=== PATIENT | male | born 1980 | race African-American/Black ===

== ENCOUNTER 2024-03-13 15:50 | Emergency (ER) | payer BC, MEDICAID ==
[~2024-03-13] VITALS: Ht 182.9 cm; Wt 110.0 kg
[2024-03-13 15:52] VITALS: O2SAT 98
[2024-03-13 16:47] LABS: BASOPHILS % 0.9 % (0.0-2.0); CHLORIDE 104 mEq/L (98-107); DIFFERENTIAL COMMENT 0; EOSINOPHILS % 2.6 % (0.0-5.0); HEMOGLOBIN. 12.4 g/dL (14.0-18.0); LYMPHOCYTES % 19.9 % (20.0-50.0); MEAN CORPUSCULAR HEMOGLOBIN 25.1 pg (28.0-32.0); MEAN CORPUSCULAR HGB CONC 31.9 g/dL (31.0-37.0); MEAN CORPUSCULAR VOLUME 78.7 fL (80.0-94.0); MEAN PLATELET VOLUME 9.6 fl (7.4-10.4); MONOCYTES % 6.7 % (2.0-8.0); NEUTROPHILS % 69.9 % (40.0-76.0); PLATELET 308 x1000/uL (130-400); POTASSIUM 3.7 mEq/L (3.5-5.1); RED BLOOD CELL COUNT 4.95 mill/uL (4.7-6.1); RED CELL DISTRIBUTION WIDTH 14.4 % (11.6-14.6); SODIUM 135 mEq/L (136-145); WHITE BLOOD COUNT 8.8 x1000/uL (4.5-11.0)
[2024-03-13 16:48] LABS: CARBON DIOXIDE 21 mEq/L (21-32)
[2024-03-13] MEDS: SODIUM CHLORIDE 0.9% 1000ML BAG (SEPSIS BOLUS) IV ONE (16:49)
[2024-03-13 16:53] LABS: CREATININE 4.2 mg/dL (0.6-1.3); GLUCOSE 297 mg/dL (70-105); UREA NITROGEN BLOOD 34 mg/dL (9-23)
[2024-03-13 16:55] LABS: TROPONIN I HIGH SENSITIVITY 37 ng/L (3.0-53)
[2024-03-13 20:07] VITALS: BP 188/110; PULSE 120; RESP 12; TEMP 98.4
[2024-03-13 20:52] LABS: TROPONIN I HIGH SENSITIVITY 39 ng/L (3.0-53)
== END 2024-03-13 21:45 | disposition left against medical advice (07) ==
LOC: ER 15:50
DX: R41.82 Altered mental status, unspecified (principal); E11.9 Type 2 diabetes mellitus without complications; Z86.73 Personal history of transient ischemic attack (TIA), and cerebral infarction without residual deficits
CPT/HCPCS: 99285; 71045; 80048; 83880; 83605; 85025; 84484; 36415; 93005; J7030

== ENCOUNTER 2024-12-02 12:33 | Emergency (ER) | payer BC, MEDICAID ==
[~2024-12-02] VITALS: Ht 170.2 cm; Wt 110.0 kg
[~2024-12-02 12:33] MED LIST: AMLO5TAB88 PO; ASPI-1497 PO; ATOR-2 PO; EMPA25TA PO; HYDR25TA78 PO; IBUP-2028 MT; LISI20TA31 PO; PIOG45TA64 PO
[2024-12-02 12:38] VITALS: TEMP 37.2; O2SAT 100
[2024-12-02 14:05] LABS: CLARITY URINE CLEAR (CLEAR); COLOR URINE YELLOW (YELLOW); GLUCOSE URINE 2+ (NEGATIVE); KETONES URINE NEGATIVE (NEGATIVE); LEUKOCYTE ESTERASE URINE NEGATIVE (NEGATIVE); NITRITE URINE NEGATIVE (NEGATIVE); OCCULT BLOOD URINE NEGATIVE (NEGATIVE); PROTEIN URINE 3+ (NEGATIVE); SPECIFIC GRAVITY URINE 1.011 (1.005-1.030); UROBILINOGEN URINE 0.2 E.U./dL (0.2-1.0)
[2024-12-02 14:25] LABS: BACTERIA URINE NONE SEEN; RBC URINE 0-2 /hpf (0-2); SQUAMOUS EPITHELIAL CELL URINE RARE /lpf (RARE/1+); WBC URINE 0-2 /hpf (0-2); YEAST URINE NONE SEEN
[2024-12-02 14:32] LABS: *AMPHETAMINES SCREEN URINE NEGATIVE (NEGATIVE); *BENZODIAZEPINES SCREEN URINE NEGATIVE (NEGATIVE)
[2024-12-02 14:33] LABS: *BARBITURATES SCREEN URINE NEGATIVE (NEGATIVE); *COCAINE SCREEN URINE NEGATIVE (NEGATIVE); CANNABINOID URINE SCREEN NEGATIVE (NEGATIVE); ECSTASY MDMA SCREEN URINE NEGATIVE (NEGATIVE); METHADONE URINE SCREEN NEGATIVE (NEGATIVE); OPIATES URINE SCREEN NEGATIVE (NEGATIVE); PHENCYCLIDINE URINE SCREEN NEGATIVE (NEGATIVE)
[2024-12-02 15:18] LABS: BASOPHILS % 0.8 % (0.0-2.0); DIFFERENTIAL COMMENT 0; EOSINOPHILS % 1.8 % (0.0-5.0); HEMATOCRIT. 35.4 % (42.0-52.0); HEMOGLOBIN. 11.2 g/dL (14.0-18.0); LYMPHOCYTES % 20.6 % (20.0-50.0); MEAN CORPUSCULAR HEMOGLOBIN 24.7 pg (28.0-32.0); MEAN CORPUSCULAR HGB CONC 31.7 g/dL (31.0-37.0); MEAN PLATELET VOLUME 8.8 fl (7.4-10.4); NEUTROPHILS % 70.8 % (40.0-76.0); PLATELET 288 x1000/uL (130-400); RED BLOOD CELL COUNT 4.54 mill/uL (4.7-6.1); RED CELL DISTRIBUTION WIDTH 14.4 % (11.6-14.6); WHITE BLOOD COUNT 8.1 x1000/uL (4.5-11.0)
[2024-12-02 15:24] LABS: D-DIMER 0.56 mg/L FEU (<0.50); PROTHROMBIN TIME 10.4 sec (9.6-11.0)
[2024-12-02 15:38] LABS: AMMONIA < 17 uMol/L (<32)
[2024-12-02 15:41] LABS: CALCIUM 9.2 mg/dL (8.7-10.4); CARBON DIOXIDE 20 mEq/L (21-32); CHLORIDE 107 mEq/L (98-107); SODIUM 134 mEq/L (136-145)
[2024-12-02 15:45] VITALS: BP 173/82; PULSE 98; RESP 19; O2SAT 96
[2024-12-02 15:46] LABS: GLUCOSE 94 mg/dL (70-105); UREA NITROGEN BLOOD 58 mg/dL (9-23)
[2024-12-02 15:47] LABS: ETHANOL BLOOD < 10 mg/dL (<10); TROPONIN I HIGH SENSITIVITY 34 ng/L (3.0-53)
[2024-12-02 15:48] LABS: ACETAMINOPHEN < 2 ug/mL (10-30); ALANINE AMINOTRANSFERASE 12 IU/L (10-49); ALBUMIN 4.3 g/dL (3.2-4.8); ASPARTATE AMINOTRANSFERASE 13 IU/L (<34)
[2024-12-02 15:49] LABS: BILIRUBIN DIRECT < 0.1 mg/dL (<=3.0); BILIRUBIN TOTAL 0.3 mg/dL (0.1-1.0); PROTEIN TOTAL 8.7 g/dL (6.0-8.3)
[2024-12-02 15:50] LABS: THYROID STIMULATING HORMONE 0.72 uIU/mL (0.55-4.78)
[2024-12-02 16:06] LABS: CREATININE 5.4 mg/dL (0.6-1.3)
[2024-12-02] MEDS ORDERED: FUROSEMIDE 100MG/10ML VIAL IV STA (16:08)
[2024-12-02] MEDS ORDERED: SODIUM BICARBONATE 8.4% 50MEQ/50ML SYR IV ONE (16:15)
[2024-12-02] MEDS ORDERED: CALCIUM CHLORIDE 1GM/10ML SYR IV ONE (16:15)
[2024-12-02] MEDS ORDERED: ALBUTEROL (0.083%) 2.5MG/3ML NEB HHN ONE (16:15)
[2024-12-02] MEDS ORDERED: INSULIN REGULAR (HUMULIN R) 1000UNITS/10ML VIAL IV ONE (16:15)
[2024-12-02] MEDS ORDERED: SODIUM POLYSTYRENE SULFONATE 15 G/60 ML BOT PO ONE (16:15)
[2024-12-02] MEDS ORDERED: SODIUM CHLORIDE 0.9% 1,000 ML IV ONE (16:15)
[2024-12-02] MEDS ORDERED: DEXTROSE 50% WATER 50ML SYRINGE IV ONE (16:15)
[2024-12-02] MEDS ORDERED: DIPHENHYDRAMINE 50MG/ML VIAL IV NR (19:00)
[2024-12-02] MEDS ORDERED: LORAZEPAM 2MG/ML UD SYRINGE IV NR (19:00)
[2024-12-03] MEDS ORDERED: HYDR100T11 MT (14:25)
== END 2024-12-02 21:07 | disposition left against medical advice (07) ==
LOC: ER 12:43 → EDBEDREQTM 18:35 → EDBEDREQ 18:35 → ER 21:07 → CANBEDREQ 22:06
DX: R55 Syncope and collapse (principal); E11.9 Type 2 diabetes mellitus without complications; E78.00 Pure hypercholesterolemia, unspecified; I10 Essential (primary) hypertension; Z79.84 Long term (current) use of oral hypoglycemic drugs; Z79.82 Long term (current) use of aspirin; Z79.899 Other long term (current) drug therapy; Z86.73 Personal history of transient ischemic attack (TIA), and cerebral infarction without residual deficits; Z85.46 Personal history of malignant neoplasm of prostate
CPT/HCPCS: 80076; 80305; 80048; 81003; 80307; 80329; 80320; 82140; 83880; 83690; 84443; 85025; 85379; 85610; 84484; 36415; 71045; 70450; 93005; 99291; J7030; A4606; G0480

== ENCOUNTER 2025-01-23 14:26 | Emergency (ER) | payer BC, MEDICAID ==
[~2025-01-23] VITALS: Ht 175.3 cm; Wt 113.0 kg
[~2025-01-23 14:26] MED LIST changes: +HYDR100T11 MT
[2025-01-23 14:29] VITALS: O2SAT 100
[2025-01-23] MEDS ORDERED: SODIUM CHLORIDE 0.9% 1,000 ML IV ONE (14:45)
[2025-01-23 15:48] VITALS: BP 129/61; O2SAT 100
[2025-01-23 17:29] LABS: BASOPHILS % 1.1 % (0.0-2.0); DIFFERENTIAL COMMENT 0; HEMATOCRIT. 28.7 % (42.0-52.0); HEMOGLOBIN. 9.3 g/dL (14.0-18.0); LYMPHOCYTES % 19.8 % (20.0-50.0); MEAN CORPUSCULAR HEMOGLOBIN 25.5 pg (28.0-32.0); MEAN CORPUSCULAR HGB CONC 32.5 g/dL (31.0-37.0); MEAN CORPUSCULAR VOLUME 78.4 fL (80.0-94.0); MEAN PLATELET VOLUME 8.7 fl (7.4-10.4); MONOCYTES % 7.9 % (2.0-8.0); NEUTROPHILS % 69.2 % (40.0-76.0); PLATELET 218 x1000/uL (130-400); RED BLOOD CELL COUNT 3.66 mill/uL (4.7-6.1); RED CELL DISTRIBUTION WIDTH 15.5 % (11.6-14.6); WHITE BLOOD COUNT 7.1 x1000/uL (4.5-11.0)
[2025-01-23 17:35] LABS: CHLORIDE 106 mEq/L (98-107); POTASSIUM 5.2 mEq/L (3.5-5.1); SODIUM 134 mEq/L (136-145)
[2025-01-23 17:36] LABS: CARBON DIOXIDE 18 mEq/L (21-32)
[2025-01-23 17:37] LABS: CALCIUM 8.5 mg/dL (8.7-10.4)
[2025-01-23 17:42] LABS: ETHANOL BLOOD < 10 mg/dL (<10); GLUCOSE 145 mg/dL (70-105); UREA NITROGEN BLOOD 51 mg/dL (9-23)
[2025-01-23 17:43] LABS: TROPONIN I HIGH SENSITIVITY 19 ng/L (3.0-53)
[2025-01-23 17:44] LABS: CREATINE KINASE 151 IU/L (46-171)
[2025-01-23 17:51] LABS: CREATININE 5.3 mg/dL (0.6-1.3)
[2025-01-23] MEDS ORDERED: CALCIUM GLUCONATE 1,000 MG in DEXT 5% WATER 100 ML IV ONE (18:00)
[2025-01-23] MEDS ORDERED: DEXTROSE 50% WATER 50ML SYRINGE IV ONE (18:00)
[2025-01-23] MEDS ORDERED: INSULIN REGULAR (HUMULIN R) 1000UNITS/10ML VIAL IV ONE (18:00)
[2025-01-23] MEDS ORDERED: CALCIUM GLUCONATE 1GM PREMIX 100 ML IV SCH (18:15)
[2025-01-23] MEDS: ALBUTEROL (0.083%) 2.5MG/3ML NEB HHN SCH (18:24)
[2025-01-23 18:25] VITALS: PULSE 93; RESP 18
[2025-01-23 19:45] VITALS: PULSE 106; RESP 16; TEMP 36.9
[2025-03-17] MEDS ORDERED: LIDO-53 TP (23:41)
[2025-03-17] MEDS ORDERED: NAPR-1176 MT (23:41)
== END 2025-01-23 20:25 | disposition left against medical advice (07) ==
LOC: ER 14:26 → EDBEDREQ 18:18 → CANBEDREQ 20:20 → ER 20:25
DX: I12.9 Hypertensive chronic kidney disease with stage 1 through stage 4 chronic kidney disease, or unspecified chronic kidney disease (principal); N18.9 Chronic kidney disease, unspecified; E87.5 Hyperkalemia; R55 Syncope and collapse; D64.9 Anemia, unspecified; E11.22 Type 2 diabetes mellitus with diabetic chronic kidney disease; E78.00 Pure hypercholesterolemia, unspecified; Z79.899 Other long term (current) drug therapy; Z98.890 Other specified postprocedural states
CPT/HCPCS: 80048; 80320; 82550; 83880; 85025; 84484; 36415; 71045; 70450; 94640; 93005; 99291; J0612; J7060; J7030; A4606; G0480

== ENCOUNTER 2025-04-11 11:28 | Emergency (ER) | payer BC, MEDICAID ==
[~2025-04-11] VITALS: Ht 182.9 cm; Wt 127.0 kg
[~2025-04-11 11:28] MED LIST changes: +LIDO-53 TP; +NAPR-1176 MT
[2025-04-11 11:33] VITALS: O2SAT 97
[2025-04-11 12:38] LABS: BASOPHILS % 0.5 % (0.0-2.0); EOSINOPHILS % 3.5 % (0.0-5.0); HEMATOCRIT. 32.5 % (42.0-52.0); HEMOGLOBIN. 10.1 g/dL (14.0-18.0); LYMPHOCYTES % 20.3 % (20.0-50.0); MEAN PLATELET VOLUME 8.7 fl (7.4-10.4); MONOCYTES % 5.1 % (2.0-8.0); NEUTROPHILS % 70.6 % (40.0-76.0); PLATELET 287 x1000/uL (130-400); RED BLOOD CELL COUNT 4.13 mill/uL (4.7-6.1); RED CELL DISTRIBUTION WIDTH 14.7 % (11.6-14.6)
[2025-04-11 12:56] LABS: UREA NITROGEN BLOOD 56 mg/dL (9-23)
[2025-04-11 12:58] LABS: BILIRUBIN DIRECT < 0.1 mg/dL (<=3.0); BILIRUBIN TOTAL 0.2 mg/dL (0.1-1.0); PROTEIN TOTAL 8.0 g/dL (6.0-8.3); TROPONIN I HIGH SENSITIVITY 24 ng/L (3.0-53)
[2025-04-11 13:08] LABS: ASPARTATE AMINOTRANSFERASE < 8 IU/L (<34); CREATININE 7.6 mg/dL (0.6-1.3)
[2025-04-11 13:35] VITALS: BP 135/65; PULSE 72; RESP 18; TEMP 37; O2SAT 99
[2025-04-11] MEDS ORDERED: ASPI-1406 PO (23:32)
== END 2025-04-11 13:45 | disposition left against medical advice (07) ==
LOC: ER 11:58 → CMPBEDREQ 04-12 07:58
DX: I12.0 Hypertensive chronic kidney disease with stage 5 chronic kidney disease or end stage renal disease (principal); E11.22 Type 2 diabetes mellitus with diabetic chronic kidney disease; N18.6 End stage renal disease; Z79.899 Other long term (current) drug therapy; Z86.73 Personal history of transient ischemic attack (TIA), and cerebral infarction without residual deficits; Z99.2 Dependence on renal dialysis
CPT/HCPCS: 36415; 80048; 80076; 84484; 85025; 99283

== ENCOUNTER 2025-04-15 14:20 | Emergency (ER) | payer MEDICAID ==
[~2025-04-15] VITALS: Ht 175.3 cm; Wt 112.0 kg
[~2025-04-15 14:20] MED LIST changes: +ASPI-1406 PO
[2025-04-15 14:29] VITALS: O2SAT 100
[2025-04-15 15:08] LABS: BASOPHILS % 1.4 % (0.0-2.0); EOSINOPHILS % 2.3 % (0.0-5.0); HEMATOCRIT. 30.6 % (42.0-52.0); HEMOGLOBIN. 9.7 g/dL (14.0-18.0); LYMPHOCYTES % 26.1 % (20.0-50.0); MEAN PLATELET VOLUME 8.5 fl (7.4-10.4); MONOCYTES % 5.7 % (2.0-8.0); NEUTROPHILS % 64.5 % (40.0-76.0); PLATELET 327 x1000/uL (130-400); RED BLOOD CELL COUNT 3.90 mill/uL (4.7-6.1); RED CELL DISTRIBUTION WIDTH 14.6 % (11.6-14.6)
[2025-04-15 15:19] LABS: INR 1.0
[2025-04-15 15:23] LABS: UREA NITROGEN BLOOD 40 mg/dL (9-23)
[2025-04-15 15:25] LABS: ASPARTATE AMINOTRANSFERASE 9 IU/L (<34); BILIRUBIN DIRECT < 0.1 mg/dL (<=3.0); BILIRUBIN TOTAL 0.2 mg/dL (0.1-1.0); TROPONIN I HIGH SENSITIVITY 22 ng/L (3.0-53)
[2025-04-15 15:26] LABS: PROTEIN TOTAL 7.5 g/dL (6.0-8.3)
[2025-04-15 15:41] LABS: CREATININE 6.2 mg/dL (0.6-1.3)
[2025-04-15] MEDS: METHOCARBAMOL 500MG TABLET PO ONE (16:12)
[2025-04-15] MEDS: HYDROCODONE/ACETAMINOPHEN 5/325MG TABLET PO ONE (16:12)
[2025-04-15] MEDS ORDERED: CYCL10TA21 MT (16:38)
[2025-04-15] MEDS ORDERED: LIDO700A30 TP (16:38)
[2025-04-15 17:00] VITALS: BP 146/73; PULSE 90; RESP 19; TEMP 36.8; O2SAT 97
[2025-04-15] MEDS: HYDROCORTISONE 1% CREAM 30GM TOP ONE (17:40)
== END 2025-04-15 20:10 | disposition home or self-care (01) ==
LOC: ER 14:20
DX: S29.012A Strain of muscle and tendon of back wall of thorax, initial encounter (principal); E11.22 Type 2 diabetes mellitus with diabetic chronic kidney disease; I13.11 Hypertensive heart and chronic kidney disease without heart failure, with stage 5 chronic kidney disease, or end stage renal disease; N18.6 End stage renal disease; I25.2 Old myocardial infarction; R06.02 Shortness of breath; Z79.1 Long term (current) use of non-steroidal anti-inflammatories (NSAID); Z79.82 Long term (current) use of aspirin; Z79.84 Long term (current) use of oral hypoglycemic drugs; Z79.899 Other long term (current) drug therapy; Z86.73 Personal history of transient ischemic attack (TIA), and cerebral infarction without residual deficits; Z91.158 Patient's noncompliance with renal dialysis for other reason; Z99.2 Dependence on renal dialysis
CPT/HCPCS: 36415; 71045; 80048; 80076; 83735; 83880; 84484; 85025; 93005; 99285; A4606

== ENCOUNTER 2025-04-17 14:10 | Emergency (ER) | payer MEDICAID ==
[~2025-04-17] VITALS: Ht 177.8 cm; Wt 85.0 kg
[~2025-04-17 14:10] MED LIST changes: +CYCL10TA21 MT; +LIDO700A30 TP
[2025-04-17 14:14] VITALS: BP 144/80; PULSE 84; RESP 20; TEMP 37.1; O2SAT 98
== END 2025-04-17 17:20 | disposition left against medical advice (07) ==
LOC: ER 14:10 → CANBEDREQ 15:45 → ER 17:20
DX: N18.6 End stage renal disease (principal); I12.0 Hypertensive chronic kidney disease with stage 5 chronic kidney disease or end stage renal disease; E11.22 Type 2 diabetes mellitus with diabetic chronic kidney disease; Z79.899 Other long term (current) drug therapy; Z79.84 Long term (current) use of oral hypoglycemic drugs; Z86.73 Personal history of transient ischemic attack (TIA), and cerebral infarction without residual deficits; Z99.2 Dependence on renal dialysis
CPT/HCPCS: 71045; 93005; 99283